=== PATIENT | female | born 1945 | race Two or more races ===

== ENCOUNTER 2023-10-01 16:39 | Inpatient (IN) | payer MEDICARE, OTHER ==
[2023-10-01] MEDS ORDERED: FAMOTIDINE 20 MG/50 ML IVPB 20 MG/50 ML MG IVPB ONE (17:43)
[2023-10-01] MEDS ORDERED: ACETAMINOPHEN INJECTION 100 ML IVPB ONE (17:43)
[2023-10-01 17:46] LABS: BASO % 0.3 % (0-2.0); HEMATOCRIT 36.5 % (32.4-45.2); HEMOGLOBIN 12.4 GM/dL (10.7-15.3); LYMPH % 13.8 % (8-40); MCH 29.3 pg (25.7-33.7); MEAN CELL VOLUME 86.1 fl (80-96); MEAN PLT VOLUME 8.5 fl (7.5-11.1); NEUT % 73.9 % (42.8-82.8); PLATELET COUNT 206 10^3/uL (134-434); RBC 4.24 M/mm3 (3.60-5.2); RDW 13.1 % (11.6-15.6); WHITE BLOOD COUNT 8.9 K/mm3 (4.0-10.0)
[2023-10-01] MEDS: ACETAMINOPHEN 1000 MG/100 ML BAG IVPB ONE (17:50)
[2023-10-01] MEDS: FAMOTIDINE 20 MG/50 ML IVPB 20 MG/50 ML MG IVPB ONE (17:51)
[2023-10-01] MEDS: LACTATED RINGERS SOLUTION 1000 ML INFUS.BAG IV ONE (17:51)
[2023-10-01 17:54] LABS: INR 1.19 (0.83-1.09); PROTHROMBIN TIME (PATIENT) 13.6 SEC (9.7-13.0)
[2023-10-01] MEDS ORDERED: CEFTRIAXONE 1 GM/50 ML BAG ONE (17:56)
[2023-10-01 18:01] LABS: EPI CELLS 10 /uL (0-25.1); HYALINE CASTS 1 /uL (0-3.1); PH,URINE 5.5 (5.0-8.0); URINE APPEARANCE CLEAR; URINE BACTERIA 4 /uL (0-1359); URINE BILIRUBIN NEGATIVE (NEGATIVE); URINE COLOR YELLOW; URINE GLUCOSE (UA) NEGATIVE (NEGATIVE); URINE KETONE TRACE (NEGATIVE); URINE LEUK ESTERASE 1+ (NEGATIVE); URINE NITRITE NEGATIVE (NEGATIVE); URINE PROTEIN NEGATIVE (NEGATIVE); URINE RBC 7 /uL (0-23.9); URINE WBC 25 /uL (0-25.8)
[2023-10-01 18:04] LABS: POTASSIUM 4.1 mmol/L (3.5-5.1)
[2023-10-01 18:07] LABS: ALBUMIN 3.7 g/dl (3.4-5.0); BLOOD UREA NITROGEN 15.3 mg/dL (7-18)
[2023-10-01 18:11] LABS: BILIRUBIN,TOTAL 2.1 mg/dL (0.2-1); CREATININE 0.7 mg/dL (0.55-1.3)
[2023-10-01 18:12] LABS: TOT PROT 7.4 g/dl (6.4-8.2)
[2023-10-01] MEDS: CEFTRIAXONE 1 GM in DEXTROSE 5%-WATER - 50 ML IVPB ONE (18:12)
[2023-10-02] MEDS ORDERED: ACETAMINOPHEN 1000 MG/100 ML BAG IVPB PRN (02:18)
[2023-10-02] MEDS: LACTATED RINGERS SOLUTION 1,000 ML/1,000 ML INFUS.BAG IV SCH (02:42)
[2023-10-02] MEDS ORDERED: IBUPROFEN 400 MG TABLET (FP) PO PRN (03:31)
[2023-10-02 08:52] LABS: BASO % 0.6 % (0-2.0); EOS % 0.1 % (0-4.5); HEMATOCRIT 32.8 % (32.4-45.2); LYMPH % 21.8 % (8-40); MCHC 33.6 g/dl (32.0-36.0); MEAN CELL VOLUME 86.5 fl (80-96); MEAN PLT VOLUME 9.7 fl (7.5-11.1); MONO % 15.2 % (3.8-10.2); NEUT % 62.3 % (42.8-82.8); PLATELET COUNT 185 10^3/uL (134-434); RDW 13.1 % (11.6-15.6); WHITE BLOOD COUNT 6.5 K/mm3 (4.0-10.0)
[2023-10-02 09:05] LABS: POTASSIUM 4.2 mmol/L (3.5-5.1)
[2023-10-02 09:08] LABS: ALBUMIN 3.2 g/dl (3.4-5.0); BLOOD UREA NITROGEN 11.9 mg/dL (7-18)
[2023-10-02 09:09] LABS: CALCIUM 8.4 mg/dL (8.5-10.1)
[2023-10-02 09:11] LABS: CREATININE 0.6 mg/dL (0.55-1.3); PHOSPHOROUS 3.1 mg/dL (2.5-4.9)
[2023-10-02 09:12] LABS: BILIRUBIN,TOTAL 1.7 mg/dL (0.2-1); TOT PROT 6.5 g/dl (6.4-8.2)
[2023-10-02] MEDS: CEFTRIAXONE 1 GM in DEXTROSE 5%-WATER - 50 ML IVPB SCH (10:21)
[2023-10-02] MEDS: amLODIPine BESYLATE 5 MG TABLET (FP) PO SCH (10:21)
[2023-10-02] MEDS: VALSARTAN 160 MG TABLET PO SCH (10:21)
[2023-10-02] MEDS: ENOXAPARIN NA (PORCINE) 40 MG/0.4 ML DISP.SYRIN SQ SCH (10:22)
[2023-10-02 11:11] VITALS: BMI 24.0
[2023-10-02] MEDS ORDERED: ROSUVASTATIN CA 10 MG TABLET PO SCH (22:00)
[2023-10-03 09:56] LABS: BASO % 0.8 % (0-2.0); EOS % 1.3 % (0-4.5); LYMPH % 32.5 % (8-40); MCH 29.1 pg (25.7-33.7); MCHC 33.3 g/dl (32.0-36.0); MEAN CELL VOLUME 87.3 fl (80-96); MEAN PLT VOLUME 9.2 fl (7.5-11.1); MONO % 10.2 % (3.8-10.2); NEUT % 55.2 % (42.8-82.8); PLATELET COUNT 191 10^3/uL (134-434); RBC 3.78 M/mm3 (3.60-5.2); RDW 12.9 % (11.6-15.6); WHITE BLOOD COUNT 4.6 K/mm3 (4.0-10.0)
[2023-10-03 10:18] LABS: CALCIUM 9.2 mg/dL (8.5-10.1)
[2023-10-03 10:19] LABS: ALBUMIN 3.2 g/dl (3.4-5.0); BLOOD UREA NITROGEN 7.9 mg/dL (7-18)
[2023-10-03 10:22] LABS: CREATININE 0.5 mg/dL (0.55-1.3)
[2023-10-03 10:23] LABS: BILIRUBIN,TOTAL 0.8 mg/dL (0.2-1); TOT PROT 6.5 g/dl (6.4-8.2)
[2023-10-03 13:24] VITALS: BP 136/63; PULSE 85; RESP 18; TEMP 97.7
== END 2023-10-03 13:55 | disposition home or self-care (01) | DRG 690 ==
LOC: JER 16:39 → JERBED 22:03 → J8W 10-02 09:12 → OBSVTOIN 10-02 10:24
PROVIDERS: ADMIT Internal Medicine; ATTEND Nurse Practitioner
DX: N39.0 Urinary tract infection, site not specified (principal); R65.10 Systemic inflammatory response syndrome (SIRS) of non-infectious origin without acute organ dysfunction; I10 Essential (primary) hypertension; E78.5 Hyperlipidemia, unspecified; R74.01 Elevation of levels of liver transaminase levels; B34.9 Viral infection, unspecified
CPT/HCPCS: 0241U-QW; 36415; 71045-TC-FY; 74177-TC; 76705-TC; 80053; 81003; 83605; 83735; 84100; 84484; 85025; 85610; 86850; 86900; 86901; 87040; 87086; 93005; 93010; 99285-25; G0378; J0131; Q9967